=== PATIENT | male | born 1960 | race Hispanic/Latino ===

== ENCOUNTER 2017-10-13 14:50 | Outpatient (CLI) | payer OTHER ==
--- NOTE | 2017-10-13 15:33 | XRay Report ---
Right foot: Pain The first MP joint is moderately narrowed and there are periarticular spurs involving the fibular side of the joint. The remaining joints, bones, and soft tissues are generally unremarkable. Impression: Degenerative first MP joint.
--- NOTE | 2017-10-13 15:33 | XRay Report ---
Right wrist 3 views. Findings: There are no fractures or other acute findings. There is narrowing of the first carpometacarpal joint. No soft tissue abnormalities are seen. Impression: No acute findings. 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
== END 2017-10-13 14:51 | disposition home or self-care (01) ==
LOC: SPVIMAG 14:50
PROVIDERS: ATTEND Orthopaedic Surgery Sports Medicine
DX: M18.9 Osteoarthritis of first carpometacarpal joint, unspecified (principal); M79.671 Pain in right foot

== ENCOUNTER 2020-04-22 07:19 | Day surgery (SDC) | payer OTHER ==
[2020-04-19 10:46] LABS: Hematocrit 47.2 % (35.5-45.6); Hemoglobin 15.7 gm/dl (11.8-15.2); Mean Corpuscular HGB Conc 33 % (32-34); Mean Corpuscular Volume 94 fl (84-94); Platelet Count 252 K/mm3 (140-440); Red Blood Count 5.02 M/mm3 (3.65-5.03); Red Cell Distribution Width 13.8 % (13.2-15.2)
[2020-04-19 11:55] LABS: Alanine Aminotransferase 16 units/L (7-56); Albumin 4.2 g/dL (3.9-5); BUN/Creatinine Ratio 27; Blood Urea Nitrogen 16 mg/dL (9-20); Calcium 9.3 mg/dL (8.4-10.2); Hemolysis Index 19
[~2020-04-22 07:19] MED LIST: LACTATED RINGERS 1,000 ML IV SCH; MIDAZOLAM 2 MG/2 ML INJ IV NR; WATER FOR IRRIG STERILE 1,500 ML BOTTLE IR ONE; WATER FOR IRRIG STERILE 2000 ML IR ONE
--- NOTE | 2020-04-22 08:33 | Anesthesia Day of Surgery ---
Anesthesia Day of Surgery - Day of Surgery Patient Examined: Yes Patient H&P Reviewed: Yes Patient is NPO: Yes
--- NOTE | 2020-04-22 08:33 | Anesthesia Consultation ---
Anesthesia Consult and Med Hx Date of service: 04/22/20 - Airway Anesthetic Teeth Evaluation: Poor ROM Head & Neck: Adequate Mental/Hyoid Distance: Adequate Mallampati Class: Class II Intubation Access Assessment: Probably Good - Pulmonary Exam CTA: Yes - Cardiac Exam Cardiac Exam: RRR - Pre-Operative Health Status ASA Pre-Surgery Classification: ASA2 Proposed Anesthetic Plan: General - Pulmonary Hx Smoking: Yes (previously 1 PPD x35yrs; now down to <1/2PPD) Hx Respiratory Symptoms: No Hx Sleep Apnea: No (JOZEF PRE SCREEN LOW RISK) - Cardiovascular System Hx Hypertension: No Hx Heart Attack/AMI: No Hx Percutaneous Transluminal Coronary Angioplasty (PTCA): No - Central Nervous System CVA: No Hx Back Pain: Yes - Gastrointestinal Hx Gastroesophageal Reflux Disease: No - Endocrine Hx Renal Disease: No Hx Liver Disease: No Hx Insulin Dependent Diabetes: No Hx Non-Insulin Dependent Diabetes: No Hx Thyroid Disease: No - Other Systems Hx Obesity: No - Additional Comments Anesthesia Medical History Comments: No hx anesthetic complications.
[2020-04-22] MEDS ORDERED: PHENYLEPHRINE/NS 1,000 MCG/10 ML SYRINGE (OR USE) IV ONE (09:24)
[2020-04-22] MEDS ORDERED: LIDOCAINE MPF (2%) 20 MG/1 ML VIAL 5 ML ONE (09:24)
[2020-04-22] MEDS ORDERED: ONDANSETRON 4 MG/2 ML INJ ONE (09:24)
[2020-04-22] MEDS ORDERED: propofoL 200 MG/20 ML VIAL IV ONE (09:24)
[2020-04-22] MEDS ORDERED: dexAMETHasone 20 MG/5 ML VIAL ONE (09:24)
[2020-04-22] MEDS ORDERED: fentaNYL 100 MCG/2 ML INJ ONE (09:24)
--- NOTE | 2020-04-22 09:49 | Post Operative Note ---
Date of procedure: 04/22/20 Pre-op diagnosis: bladder tumor Post-op diagnosis: same Findings: r lat wall Procedure: cysto rpgs turbt Anesthesia: GETA Surgeon: MARQUITA BARNETT Estimated blood loss: minimal Pathology: list (bladder) Specimen disposition: to lab Condition: stable Disposition: PACU
[2020-04-22] MEDS ORDERED: SODIUM CHLORIDE 0.9% IRRIG SOLN 3000 ML IR ONE ×2 (10:05)
[2020-04-22] MEDS ORDERED: WATER FOR IRRIG STERILE 1,500 ML BOTTLE IR ONE ×2 (10:05)
[2020-04-22] MEDS ORDERED: FUROSEMIDE 40 MG/4 ML INJ ONE (10:39)
[2020-04-22] MEDS ORDERED: SODIUM CHLORIDE 0.9% IRR 1,500 ML BOTTLE IR ONE (10:56)
[2020-04-22] MEDS: fentaNYL 100 MCG/2 ML INJ IV PRN ×3 (11:10→11:41)
--- NOTE | 2020-04-22 11:21 | Discharge Summary ---
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
--- NOTE | 2020-04-22 11:23 | Operative Report ---
PREOPERATIVE DIAGNOSIS: Large bladder tumor, right lateral wall. POSTOPERATIVE DIAGNOSIS: Large bladder tumor, right lateral wall. PROCEDURE: Cystoscopy, retrograde, transurethral resection of bladder tumor with the bipolar. SURGEON: Chapin Arroyo MD. ANESTHESIA: General. FINDINGS: This is a gentleman with large tumor, gross hematuria with clots for quite some time. He now presents for treatment. DESCRIPTION OF PROCEDURE: The patient was brought to the operating room and placed on the operating table. Following induction of anesthesia, placed in lithotomy position, prepped and draped in usual sterile fashion. Cystourethroscopy showed a large tumor, right lateral wall. Retrograde showed this tumor was away from the orifice and showed good filling, good drainage with air bubbles which drained on the right. The resectoscope was placed under direct vision. We used the bipolar. We tried not to fill the bladder up much and as we resected in the middle of the case, there was a significant obturator reflex with a small perforation extraperitoneal right on the lateral aspect of the bladder neck. The resection was accomplished without difficulty. There was no significant bleeding. There was no bleeding from the small perforation, which was likely from the beak of the scope. It was distal to the tumor. We did deeper biopsies and sent separately as specimen. All the chips were evacuated with the BitWine evacuator. The patient tolerated the procedure well. No significant bleeding. Estimated blood loss less than 30 mL and a 3-way catheter was inserted. We did a cystogram. There was no significant extravasation and we left a large catheter. He will not have a Dior drip and probably can go home later today. We will see how he does today. He was brought to recovery room in stable condition. JOB# [id number] WING/TOD
[2020-04-22] MEDS ORDERED: HYDROcodone/ACETAMINOPHEN 5-325 MG TAB PO PRN (12:26)
[2020-04-22 13:55] VITALS: BP 101/65
[2020-04-22] MEDS ORDERED: PHENAZOPYRIDINE 100 MG TAB PO SCH (14:00)
--- NOTE | 2020-04-22 14:32 | Post Anesthesia Evaluation ---
- Post Anesthesia Evaluation Patient Participated: Yes Airway Patent: Yes Stable Respiratory Function: Yes Nausea/Vomiting: No Temp > 96.8F: Yes Pain Manageable: Yes Adequeate Hydration: Yes Anesthesia Complications: No
--- NOTE | 2020-04-22 15:42 | Fluoroscopy Report ---
FLUOROSCOPY RETROGRADE UROGRAPHY FLUOROSCOPY CYSTOGRAM HISTORY: FINDINGS: Fluoroscopy was provided by radiology during retrograde urography by the urologist. There i s normal filling of both renal collecting systems. No filling defect or abnormal dilatation is identi fied. The cystogram images demonstrate a small amount of contrast agent in the bladder which contains a Fol ey catheter. There is no obvious filling defect, extravasation or vesicoureteral reflux. IMPRESSION: Unremarkable bilateral retrograde pyelograms and cystogram. Fluoroscopy time: 37 seconds Fluoroscopic images: 13 Signer Name: Conrad Silveira Jr, MD Signed: 04/22/2020 3:37 PM Workstation Name: [id number]
== END 2020-04-22 13:39 | disposition home or self-care (01) ==
LOC: OR 07:19
PROVIDERS: ATTEND Urology
DX: C67.2 Malignant neoplasm of lateral wall of bladder (principal); Z11.59 Encounter for screening for other viral diseases; F17.210 Nicotine dependence, cigarettes, uncomplicated; M19.90 Unspecified osteoarthritis, unspecified site; Z98.890 Other specified postprocedural states; Z88.5 Allergy status to narcotic agent
CPT/HCPCS: 36415; 74420; 74430; 80053; 85027; 88305; 88307; A4217; C1758; J1100; J1940; J2250; J2370; J2405; J2704; J3010; J7120; Q9967; U0003-CS

== ENCOUNTER 2020-06-05 10:49 | Day surgery (SDC) | payer OTHER ==
[~2020-06-05 10:49] MED LIST changes: -MIDAZOLAM 2 MG/2 ML INJ IV NR; -WATER FOR IRRIG STERILE 1,500 ML BOTTLE IR ONE; -WATER FOR IRRIG STERILE 2000 ML IR ONE
[2020-06-05] MEDS ORDERED: fentaNYL 100 MCG/2 ML INJ IV SCH (11:25)
[2020-06-05] MEDS ORDERED: fentaNYL 100 MCG/2 ML INJ ONE ×2 (11:28→13:02)
[2020-06-05] MEDS: MIDAZOLAM 2 MG/2 ML INJ IV NR ×2 (11:35→12:10)
--- NOTE | 2020-06-05 11:38 | Anesthesia Consultation ---
Anesthesia Consult and Med Hx Date of service: 06/05/20 - Airway Anesthetic Teeth Evaluation: Poor ROM Head & Neck: Adequate Mental/Hyoid Distance: Adequate Mallampati Class: Class II Intubation Access Assessment: Probably Good (previous LMA 5) - Pulmonary Exam CTA: Yes - Cardiac Exam Cardiac Exam: RRR - Pre-Operative Health Status ASA Pre-Surgery Classification: ASA3 Proposed Anesthetic Plan: General - Pulmonary Hx Smoking: Yes (1 PPD X 40 YRS) Hx Respiratory Symptoms: No COPD: No Hx Sleep Apnea: No (JOZEF PRE SCREEN HIGH RISK) - Cardiovascular System Hx Hypertension: No Hx Heart Attack/AMI: No Hx Percutaneous Transluminal Coronary Angioplasty (PTCA): No - Central Nervous System Hx Seizures: Yes (20 YRS AGO) CVA: No Hx Back Pain: Yes - Gastrointestinal Hx Gastroesophageal Reflux Disease: No - Endocrine Hx Renal Disease: No Hx Cirrhosis: No Hx Liver Disease: No Hx Insulin Dependent Diabetes: No Hx Non-Insulin Dependent Diabetes: No Hx Thyroid Disease: No - Other Systems Hx Substance Use: Yes (hx cocaine use; none x16 yrs) Hx Cancer: Yes (bladder CA; recent diagnosis) - Additional Comments Anesthesia Medical History Comments: No hx anesthetic complications.
[2020-06-05] MEDS ORDERED: HYDROmorphone 1 MG/1 ML INJ IV PRN (11:39)
--- NOTE | 2020-06-05 11:39 | Anesthesia Day of Surgery ---
Anesthesia Day of Surgery - Day of Surgery Patient Examined: Yes Patient H&P Reviewed: Yes Patient is NPO: Yes
[2020-06-05] MEDS ORDERED: ceFAZolin/STERILE WATER 2 GM/20 ML SYRINGE IV NR (12:27)
[2020-06-05] MEDS ORDERED: KETOROLAC 30 MG/1 ML INJ ONE (13:02)
[2020-06-05] MEDS ORDERED: ONDANSETRON 4 MG/2 ML INJ ONE (13:02)
[2020-06-05] MEDS ORDERED: propofoL 200 MG/20 ML VIAL IV ONE (13:03)
[2020-06-05] MEDS ORDERED: LIDOCAINE MPF (2%) 20 MG/1 ML VIAL 5 ML ONE (13:04)
[2020-06-05] MEDS ORDERED: HYDROmorphone 1 MG/1 ML INJ ONE (14:24)
[2020-06-05] MEDS ORDERED: WATER FOR IRRIG STERILE 2000 ML IR ONE (14:27)
[2020-06-05] MEDS ORDERED: WATER FOR IRRIG STERILE 1,500 ML BOTTLE IR ONE (14:27)
--- NOTE | 2020-06-05 14:29 | Post Operative Note ---
Date of procedure: 06/05/20 Pre-op diagnosis: bladder cancer Post-op diagnosis: same Findings: old scar Procedure: cysto deeper biopsies Anesthesia: GETA Surgeon: MARQUITA BARNETT Estimated blood loss: minimal Pathology: list (bladder) Specimen disposition: to lab Condition: stable Disposition: PACU
--- NOTE | 2020-06-05 14:30 | Discharge Summary ---
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
--- NOTE | 2020-06-05 14:37 | Operative Report ---
PREOPERATIVE DIAGNOSIS: Bladder cancer. POSTOPERATIVE DIAGNOSIS: Bladder cancer, with mild meatal stenosis. PROCEDURE: Cystoscopy, meatal dilatation biopsies with deeper biopsies of the old tumor site, fulguration, some random biopsies, insertion of catheters and retrograde. SURGEON: Dr. Arroyo. ANESTHESIA: General. FINDINGS: This is a gentleman who had a large bladder tumor resected. It was a right lateral wall near the obturator nerve. Once this was resected, the catheter was left. He healed well. He has a little bit of sprayed flow. He now presents for cystoscopy for deeper biopsies. DESCRIPTION OF PROCEDURE: The patient was brought to the operating table. Following induction of anesthesia, placed in lithotomy position, prepped and draped in usual sterile fashion. The old tumor was seen. A stellate scar was seen. Deeper biopsies were obtained. Retrograde showed delicate systems bilaterally. Everything had healed well. The meatus was narrowed, had to be slightly dilated, and that is probably why he had a little bit of a sprayed flow. Retrograde is being normal. Random biopsies on the other side were done. The patient tolerated the procedure well. Area was cauterized. A 20-Greenlandic coude catheter was left. He was brought to recovery in stable condition. JOB# [id number] WING/TOD
[2020-06-05] MEDS ORDERED: PHENAZOPYRIDINE 200 MG TAB PO ONE ×2 (14:40→21:00)
[2020-06-05] MEDS ORDERED: HYDROcodone/ACETAMINOPHEN 10-325MG TAB PO ONE (15:00)
[2020-06-05] MEDS ORDERED: HYDROcodone/ACETAMINOPHEN 10-325MG TAB ONE (15:02)
[2020-06-05] MEDS ORDERED: FUROSEMIDE 40 MG/4 ML INJ ONE (15:16)
--- NOTE | 2020-06-05 18:11 | Fluoroscopy Report ---
INTRAOPERATIVE FLUOROSCOPY INDICATION / CLINICAL INFORMATION: BLADDER CANCER. TECHNIQUE: Intraoperative spot images were obtained during the procedure. FINDINGS: Intraoperative fluoroscopy images for retrograde urography. See operative/procedure note by performing physician for full details. Fluoroscopy Time: 9 seconds. Fluoroscopy Images: 5. Signer Name: Edgardo Duong MD Signed: 06/05/2020 6:07 PM Workstation Name: [id number]
[2020-06-05 20:19] VITALS: BP 122/62
== END 2020-06-05 10:50 | disposition home or self-care (01) ==
LOC: OR 10:49
PROVIDERS: ATTEND Urology
DX: C67.2 Malignant neoplasm of lateral wall of bladder (principal); N30.80 Other cystitis without hematuria; M19.90 Unspecified osteoarthritis, unspecified site; K21.9 Gastro-esophageal reflux disease without esophagitis; F17.210 Nicotine dependence, cigarettes, uncomplicated; Z88.5 Allergy status to narcotic agent; Z79.899 Other long term (current) drug therapy; Z98.52 Vasectomy status; Z87.442 Personal history of urinary calculi; Z87.440 Personal history of urinary (tract) infections; Z72.89 Other problems related to lifestyle; Z98.890 Other specified postprocedural states
CPT/HCPCS: 74420; 88112; 88305; A4217; C1758; J0690; J1170; J1885; J1940; J2250; J2405; J2704; J3010; J7120; Q9967

== ENCOUNTER 2020-12-02 05:59 | Day surgery (SDC) | payer OTHER ==
[2020-12-02] MEDS ORDERED: dexAMETHasone 20 MG/5 ML VIAL ONE (07:33)
[2020-12-02] MEDS ORDERED: PHENYLEPHRINE/NS 1,000 MCG/10 ML SYRINGE (OR USE) IV ONE (07:33)
[2020-12-02] MEDS ORDERED: SUCCINYLCHOLINE CHLORIDE 200 MG/10 ML INJ MDV ONE (07:33)
[2020-12-02] MEDS ORDERED: LIDOCAINE MPF (2%) 20 MG/1 ML VIAL 5 ML ONE (07:33)
[2020-12-02] MEDS ORDERED: fentaNYL 100 MCG/2 ML INJ ONE (07:33)
[2020-12-02] MEDS ORDERED: ONDANSETRON 4 MG/2 ML INJ ONE (07:33)
[2020-12-02] MEDS ORDERED: propofoL 200 MG/20 ML VIAL IV ONE (07:33)
--- NOTE | 2020-12-02 07:41 | Anesthesia Day of Surgery ---
Anesthesia Day of Surgery - Day of Surgery Patient Examined: Yes Patient H&P Reviewed: Yes Patient is NPO: Yes
--- NOTE | 2020-12-02 07:41 | Anesthesia Consultation ---
Anesthesia Consult and Med Hx Date of service: 12/02/20 - Airway Anesthetic Teeth Evaluation: Poor (multiple missing, broken teeth in the bottom), Dentures (top) ROM Head & Neck: Adequate Mental/Hyoid Distance: Adequate Mallampati Class: Class II - Pre-Operative Health Status ASA Pre-Surgery Classification: ASA3 Proposed Anesthetic Plan: General - Pulmonary Hx Smoking: Yes (1 PPD SINCE 1974) Hx Asthma: No Hx Respiratory Symptoms: No COPD: No Hx Pneumonia: No Hx Sleep Apnea: No (JOZEF PRE SCREEN HIGH RISK) - Cardiovascular System Hx Hypertension: No Hx Heart Attack/AMI: No Hx Percutaneous Transluminal Coronary Angioplasty (PTCA): No Hx Heart Murmur: No - Central Nervous System Hx Seizures: Yes (20 YRS AGO- DRUG INDUCED) CVA: No Hx Back Pain: Yes Hx Psychiatric Problems: Yes (anxiety) - Gastrointestinal Hx Ulcer: No Hx Gastroesophageal Reflux Disease: No - Endocrine Hx Renal Disease: No (BPH) Hx Cirrhosis: No Hx Liver Disease: No Hx Insulin Dependent Diabetes: No Hx Non-Insulin Dependent Diabetes: No Hx Thyroid Disease: No - Hematic Hx Anemia: No Hx Sickle Cell Disease: No - Other Systems Hx Alcohol Use: Yes (R[employer]) Hx Substance Use: Yes (hx cocaine use; none x16 yrs) Hx Cancer: Yes (bladder CA (2020), SKIN CA ON NOSE - REMOVED) Hx Obesity: No
[2020-12-02] MEDS ORDERED: LACTATED RINGERS 1,000 ML IV SCH (07:45)
[2020-12-02] MEDS ORDERED: GABAPENTIN 300 MG CAP ONE (07:45)
[2020-12-02] MEDS ORDERED: MIDAZOLAM 2 MG/2 ML INJ ONE (07:46)
[2020-12-02] MEDS ORDERED: CELECOXIB 200 MG CAP PO NR (08:00)
[2020-12-02] MEDS ORDERED: GABAPENTIN 300 MG CAP PO NR (08:00)
[2020-12-02] MEDS ORDERED: MIDAZOLAM 2 MG/2 ML INJ IV NR (08:00)
[2020-12-02] MEDS ORDERED: FAMOTIDINE 20 MG/2 ML INJ IV NR (08:00)
[2020-12-02] MEDS ORDERED: ceFAZolin/Water 2 GM/20 ML 2 GM/20 ML SYRINGE IV ONE (08:04)
[2020-12-02] MEDS ORDERED: PHENAZOPYRIDINE 200 MG TAB PO SCH (09:00)
[2020-12-02] MEDS ORDERED: WATER FOR IRRIG STERILE 1,500 ML BOTTLE IR ONE (09:20)
[2020-12-02] MEDS ORDERED: WATER FOR IRRIG STERILE 2000 ML IR ONE (09:20)
--- NOTE | 2020-12-02 09:24 | Post Operative Note ---
Date of procedure: 12/02/20 Pre-op diagnosis: TCC Post-op diagnosis: same Findings: old scar Procedure: cysto biopsise rpgs Anesthesia: GETA Surgeon: MARQUITA BARNETT Estimated blood loss: none Pathology: list (bladder) Specimen disposition: to lab Condition: stable Disposition: PACU
--- NOTE | 2020-12-02 09:25 | Discharge Summary ---
Short Stay Discharge Plan Activity: other (no straining ) Weight Bearing Status: Full Weight Bearing Diet: low fat, low cholesterol, low salt Special Instructions: other (inc fluids ) Follow up with: PRIMARY CARE, [Primary Care Provider] - 7 Days MARQUITA BARNETT MD [Staff Physician] - 7 Days
[2020-12-02] MEDS ORDERED: PHENAZOPYRIDINE 200 MG TAB PO ONE (09:27)
--- NOTE | 2020-12-02 09:27 | Operative Report ---
PREOPERATIVE DIAGNOSIS: Bladder cancer. POSTOPERATIVE DIAGNOSIS: Bladder cancer. PROCEDURE: Cystoscopy, biopsies, retrograde. SURGEON: Dr. Chapin Arroyo ANESTHESIA: General. FINDINGS: This is a gentleman who had a large bladder tumor, noninvasive, has occasional hematuria. He continues to smoke. He now presents for treatment. DESCRIPTION OF PROCEDURE: The patient was brought to the operating table. Following induction of anesthesia, placed in lithotomy position, prepped and draped in usual sterile fashion. Cystourethroscopy showed the old scar. It was above the right orifice. Retrograde showed delicate systems with good drainage, no persistent filling defects. There were no bladder tumors. The old scar was quite visible. Random biopsies were obtained in area around the tumor, were biopsied as well. The patient tolerated the procedure well. Area was cauterized. We did a biopsy of prostatic urethra as well. The patient tolerated the procedure well. No significant complication. He was brought to recovery room without a catheter in stable condition. JOB# [id number] WING/TOD
[2020-12-02] MEDS ORDERED: HYDROmorphone 1 MG/1 ML INJ IV PRN (09:30)
[2020-12-02] MEDS ORDERED: ONDANSETRON 4 MG/2 ML INJ IV PRN (10:00)
[2020-12-02 10:29] VITALS: BP 111/60
[2020-12-02] MEDS ORDERED: ceFAZolin/STERILE WATER 2 GM/20 ML SYRINGE IV NR (10:30)
--- NOTE | 2020-12-02 16:43 | Post Anesthesia Evaluation ---
- Post Anesthesia Evaluation Patient Participated: Yes Airway Patent: Yes Stable Respiratory Function: Yes Nausea/Vomiting: No Temp > 96.8F: Yes Pain Manageable: Yes Adequeate Hydration: Yes Anesthesia Complications: No Block Receding Appropriately: Not Applicable Patient on Ventilator: No
--- NOTE | 2020-12-02 17:18 | Fluoroscopy Report ---
INTRAOPERATIVE FLUOROSCOPY: RETROGRADE UROGRAPHY INDICATION / CLINICAL INFORMATION: BLADDER CANCER. TECHNIQUE: Intraoperative spot images were obtained during the procedure. FINDINGS: Images show retrograde pyelogram with filling of both ureters and renal collecting systems. 10 mL Omn ipaque 300 used. See operative/procedure note by performing physician for full details. Fluoroscopy Time: 9 seconds. Fluoroscopy Images: 5. Signer Name: Alirio Hernandez MD Signed: 12/02/2020 5:14 PM Workstation Name: [id number]
== END 2020-12-02 06:00 | disposition home or self-care (01) ==
LOC: OR 05:59
PROVIDERS: ATTEND Urology
DX: C67.9 Malignant neoplasm of bladder, unspecified (principal); N30.20 Other chronic cystitis without hematuria; N32.89 Other specified disorders of bladder; F17.210 Nicotine dependence, cigarettes, uncomplicated; K21.9 Gastro-esophageal reflux disease without esophagitis; M19.90 Unspecified osteoarthritis, unspecified site; Z72.89 Other problems related to lifestyle; Z88.5 Allergy status to narcotic agent; Z98.52 Vasectomy status; Z87.442 Personal history of urinary calculi; Z98.890 Other specified postprocedural states; Z87.440 Personal history of urinary (tract) infections
CPT/HCPCS: 52204; 55700; 74420; 88112; 88305; A4217; C1758; J0330; J0690; J1100; J1170; J2250; J2370; J2405; J2704; J3010; J7120; Q9967